=== PATIENT | male | born 1955 | race African-American/Black ===

== ENCOUNTER 2020-04-03 05:12 | Inpatient (IN) | payer OTHER ==
[~2020-04-03] VITALS: Ht 167.6 cm; Wt 72.6 kg
--- NOTE | 2020-04-03 05:30 | NUR ---
BIBRA [address] FOR C/O SOB X 7-8 HRS TO ER BED 11 PLACED ON SKILLS TRAINER VSS
--- NOTE | 2020-04-03 05:49 | NUR ---
blood collected and sent to lab
--- NOTE | 2020-04-03 06:00 | NUR ---
tech at bedside for xray
[2020-04-03 06:03] LABS: BASOPHILS # (AUTO) 0.1 /CMM (0.0-0.2); BASOPHILS % (AUTO) 1.4 % (0.0-2.0); EOSINOPHILS % (AUTO) 0.9 % (0.0-6.0); HEMATOCRIT 38 % (39-51); HEMOGLOBIN 11.9 g/dL (13.5-17.5); LYMPHOCYTES # (AUTO) 1.4 /CMM (0.8-4.8); LYMPHOCYTES % (AUTO) 29.8 % (20.0-44.0); MEAN CORPUSCULAR HGB CONC 31 g/dl (31.0-36.0); MEAN CORPUSCULAR VOLUME 82 fL (80-96); MONOCYTES # (AUTO) 0.5 /CMM (0.1-1.30); MONOCYTES % (AUTO) 11.4 % (2.0-12.0); NEUTROPHILS # (AUTO) 2.6 /CMM (1.8-8.9); NEUTROPHILS % (AUTO) 56.5 % (43.0-81.0); PLATELET COUNT (AUTO) 436 /CMM (150-450); RED BLOOD CELL COUNT(AUTO) 4.66 MIL/uL (4.5-6.0); WHITE BLOOD COUNT (AUTO) 4.6 K/uL (4.3-11.0)
[2020-04-03 06:09] LABS: CALCIUM, SERUM 8.4 mg/dL (8.5-10.1); CREATININE 1.3 mg/dL (0.6-1.3); POTASSIUM 4.3 mmol/L (3.5-5.1)
[2020-04-03 06:21] LABS: BILIRUBIN,DIRECT 0.1 mg/dL (0.0-0.2); BILIRUBIN,TOTAL 0.4 mg/dL (0.2-1.0); TOTAL PROTEIN, SERUM 7.2 g/dL (6.4-8.2)
[2020-04-03] MEDS ORDERED: PIPERACILLIN /TAZOBACTAM 3.375 G VIAL IV ONE (06:23)
[2020-04-03] MEDS ORDERED: AZITHROMYCIN 500 MG VIAL ONE (06:23)
[2020-04-03] MEDS ORDERED: FUROSEMIDE 40 MG/4 ML VIAL IV ONE (06:30)
[2020-04-03] MEDS ORDERED: PIPERACILLIN /TAZOBACTAM 3.375 G in IV D5W 50 ML IV ONE (06:30)
[2020-04-03] MEDS ORDERED: AZITHROMYCIN 500 MG in IV D5W 250 ML IV ONE (06:30)
[2020-04-03] MEDS ORDERED: MORPHINE SULFATE INJ 4 MG/ML DISP.SYRIN ONE (06:36)
[2020-04-03] MEDS ORDERED: OLANZAPINE 10 MG VIAL IM ONE ×2 (06:37→07:00)
[2020-04-03 06:44] LABS: ABG BASE EXCESS -4.9 mmol/L; ABG OXYGEN SATURATION 95.4 % (92.0-98.5); ABG PCO2 28.1 mmHg (35.0-45.0); ABG PH 7.429 (7.350-7.450); AaDO2 33.1 mmHg; COHb 0.5 % (0.5-1.5); MetHb 0.4 % (0.0-1.5); O2Hb 94.5 % (94.0-97.0); SITE, ABG Right Radial
[2020-04-03] MEDS ORDERED: ONDANSETRON HCL/PF 4 MG/2 ML VIAL ONE (06:45)
[2020-04-03] MEDS ORDERED: FUROSEMIDE 40 MG/4 ML VIAL ONE (06:47)
[2020-04-03] MEDS ORDERED: ONDANSETRON HCL/PF - ER 4 MG/2 ML VIAL IV ONE (07:00)
[2020-04-03] MEDS ORDERED: MORPHINE SULFATE INJ 2 MG/ML DISP.SYRIN IV ONE (07:00)
[2020-04-03 07:02] LABS: CREATINE KINASE, TOTAL 459 U/L (39-308); FERRITIN 14 ng/mL (8-388)
--- NOTE | 2020-04-03 07:24 | NUR ---
report given to mary jo talavera for gill
[2020-04-03 07:40] LABS: D-DIMER 1.38 mg/L(FEU (0.17-0.50)
[2020-04-03 08:40] LABS: CALCIUM, SERUM 8.7 mg/dL (8.5-10.1); CARBON DIOXIDE 19 mmol/L (21-32); CHLORIDE 104 mmol/L (98-107); CREATININE 1.2 mg/dL (0.6-1.3); GLUCOSE 71 mg/dL (74-106); POTASSIUM 4.5 mmol/L (3.5-5.1); SODIUM SERUM 136 mmol/L (136-145); UREA NITROGEN, BLOOD 21 mg/dL (7-18)
[2020-04-03 08:45] LABS: ALANINE AMINOTRANSFERASE 54 U/L (12-78); ALKALINE PHOSPHATASE 77 U/L (46-116); ASPARTATE AMINOTRANSFERASE 54 U/L (15-37); BILIRUBIN,TOTAL 0.4 mg/dL (0.2-1.0)
--- NOTE | 2020-04-03 08:53 | NUR ---
REPORT GIVEN TO DONNA CEDENO OF TELE
--- NOTE | 2020-04-03 09:45 | NUR ---
JAMES RN NOTES RECEIVED PT IN JORY CALVIN GAVE ME REPORT. PT IS ALERT AND ORIENTED X 4. COMPLAINS OF SOB AND DIFFICULTY OF BREATHING. PT IS NC 2L L FOREARM IS INTACT AND FLUSHING WELL WITH NO SIGN OF SWELLING. PT USES URINAL. SAFETY MEASUREMENTS ARE IMPLEMENTED. BED IN THE LOWEST POSITION RAILS ARE UP X2. CALL LIGHT WITHIN REACH. WILL CONTINUE TO MONITOR
[2020-04-03] MEDS ORDERED: BUMETANIDE INJ 6 MG in IV NS 0.9% 36 ML IV ONE (10:30)
[2020-04-03] MEDS ORDERED: Z GUARD REMEDY 2 OZ OINT TP PRN (10:30)
[2020-04-03] MEDS ORDERED: ONDANSETRON HCL/PF 4 MG/2 ML VIAL IVP PRN (10:30)
[2020-04-03] MEDS: ASPIRIN EC 81 MG TABLET.DR PO SCH (10:59)
[2020-04-03] MEDS: ENOXAPARIN SODIUM 40 MG/0.4 ML DISP.SYRIN SQ SCH (11:01)
--- NOTE | 2020-04-03 11:40 | NUR ---
JAMES RN NOTES LAB CALLED DEVORAH REPORTED LACTI ACID IS 3.[address] KIKE SALVADOR WAITING FOR THE RESPONSE
--- NOTE | 2020-04-03 12:00 | NUR ---
JAMES RN NOTES DR REPLIED THANKS FOR INFORMING NO ACTION NEED IT
[2020-04-03 12:45] LABS: THYROID STIMULATING HORMONE 2.284 uIU/mL (0.358-3.74)
[2020-04-03] MEDS ORDERED: FUROSEMIDE IV ONE (13:00)
[2020-04-03] MEDS ORDERED: NS 0.9% IV ONE (13:00)
[2020-04-03 15:27] VITALS: BP 136/108
[2020-04-03] MEDS: ACETAMINOPHEN 325 MG TABLET PO PRN (17:27)
--- NOTE | 2020-04-03 18:49 | NUR ---
JAMES CLOSING RN NOTES PT IS RESTING IN BED. PT IS ALERT AND ORIENTED X 4. NOT COMPLAINING OF SOB AND DIFFICULTY OF BREATHING. PT IS NC 2L L FOREARM IS INTACT AND FLUSHING WELL WITH NO SIGN OF SWELLING. PT USES URINAL. SAFETY MEASUREMENTS ARE IMPLEMENTED. BED IN THE LOWEST POSITION RAILS ARE UP X2. CALL LIGHT WITHIN REACH. WILL ENDORSE TO INSPECTOR AIR CARRIER FOR [place].
--- NOTE | 2020-04-03 19:30 | NUR ---
RN OPENING NOTE RECEIVED PT IN BED AWAKE. A/O X 4. PT CURRENTLY NOT IN ANY RESPIRATORY DISTRESS NO S/S OF SOB. PT ON NC 2L/MIN. IV TO LEFT FOREARM PATENT, INTACT AND FLUSHING WELL. DENIES PAIN OR DISCOMFORT AT THIS TIME. CURRENTLY SR ON TELE MONITOR. SAFETY MEASUREMENTS IN PLACE, SIDE RAILS UP X 2, BED LOCKED AND IN THE LOWEST POSITION, CALL LIGHT WITHIN REACH, WILL CONTINUE TO MONITOR PT.
[2020-04-03 20:00] VITALS: BP 105/78
[2020-04-04] VITALS: BP_SYST 111; BP_SYST 125; BP_DIAS 81; BP_DIAS 92
--- NOTE | 2020-04-04 00:55 | NUR ---
0055 PATIENT STARTED SCREAMING COMPLAINING OF PAIN ON HIS LEGS, DANIEL BROOKS NOTIFIED WITH ORDER MADE. ORDER NOTED AND CARRIED OUT. PROVIDED WITH WARM COMPRESS REQUESTED FOR COMFORT.
[2020-04-04] MEDS: ACETAMINOPHEN 325 MG TABLET PO PRN (00:57)
[2020-04-04] MEDS: HYDROCODONE/APAP 5/325MG TABLET PO PRN ×2 (01:21→05:05)
[2020-04-04 04:00] VITALS: BP 115/80
[2020-04-04 06:15] LABS: BASOPHILS # (AUTO) 0.1 /CMM (0.0-0.2); BASOPHILS % (AUTO) 1.2 % (0.0-2.0); EOSINOPHILS % (AUTO) 1.8 % (0.0-6.0); HEMATOCRIT 39 % (39-51); HEMOGLOBIN 12.3 g/dL (13.5-17.5); LYMPHOCYTES # (AUTO) 1.6 /CMM (0.8-4.8); LYMPHOCYTES % (AUTO) 38.4 % (20.0-44.0); MEAN CORPUSCULAR HGB CONC 31 g/dl (31.0-36.0); MEAN CORPUSCULAR VOLUME 81 fL (80-96); MONOCYTES # (AUTO) 0.5 /CMM (0.1-1.30); MONOCYTES % (AUTO) 10.8 % (2.0-12.0); NEUTROPHILS % (AUTO) 47.8 % (43.0-81.0); PLATELET COUNT (AUTO) 485 /CMM (150-450); RED BLOOD CELL COUNT(AUTO) 4.87 MIL/uL (4.5-6.0); WHITE BLOOD COUNT (AUTO) 4.3 K/uL (4.3-11.0)
[2020-04-04 06:53] LABS: ALBUMIN 2.7 g/dL (3.4-5.0); BILIRUBIN,TOTAL 0.4 mg/dL (0.2-1.0); CALCIUM, SERUM 8.6 mg/dL (8.5-10.1); CREATININE 1.3 mg/dL (0.6-1.3); MAGNESIUM 2.3 mg/dL (1.8-2.4); PHOSPHORUS 4.1 mg/dL (2.5-4.9); POTASSIUM 3.8 mmol/L (3.5-5.1); TOTAL PROTEIN, SERUM 6.5 g/dL (6.4-8.2)
--- NOTE | 2020-04-04 06:56 | NUR ---
RN CLOSING NOTE PT IN BED AWAKE. CURRENTLY NOT IN ANY RESPIRATORY DISTRESS NO S/S OF SOB. PT ON NC 2L/MIN TOLERATING WELL. IV TO LEFT FOREARM PATENT, INTACT AND FLUSHING WELL. DENIES PAIN OR DISCOMFORT AT THIS TIME. CURRENTLY SR ON TELE MONITOR. SAFETY MEASUREMENTS IN PLACE, SIDE RAILS UP X 2, BED LOCKED AND IN THE LOWEST POSITION, CALL LIGHT WITHIN REACH. AWARE PT REQUESTING MD TO EXAMINE HERNIA. ENDORSED TO AM RN FOR [place]
[2020-04-04] MEDS: PANTOPRAZOLE 40 MG TABLET.DR PO SCH ×2 (07:40→08:41)
[2020-04-04 08:00] VITALS: BP 117/77
--- NOTE | 2020-04-04 08:10 | NUR ---
JAMES OPENING RN NOTES PT IS RESTING IN BED. PT IS ALERT AND ORIENTED X 4. NOT COMPLAINING OF SOB AND DIFFICULTY OF BREATHING. PT IS NC 2L L FOREARM IS INTACT AND FLUSHING WELL WITH NO SIGN OF SWELLING. PT USES URINAL. SAFETY MEASUREMENTS ARE IMPLEMENTED. BED IN THE LOWEST POSITION RAILS ARE UP X2. CALL LIGHT WITHIN REACH. WILL CONTINUE TO MONITOR
[2020-04-04] MEDS ORDERED: [UNRECOGNIZED DRUG - REMARK] PO (08:29)
[2020-04-04] MEDS ORDERED: [UNRECOGNIZED DRUG - REMARK] PO (08:29)
[2020-04-04] MEDS ORDERED: GABA600T12 PO (08:29)
[2020-04-04] MEDS ORDERED: HYDR-4354 PO (08:29)
[2020-04-04] MEDS ORDERED: HYDR-4384 PO (08:29)
[2020-04-04] MEDS: ASPIRIN EC 81 MG TABLET.DR PO SCH (08:41)
[2020-04-04] MEDS: ENOXAPARIN SODIUM 40 MG/0.4 ML DISP.SYRIN SQ SCH (08:41)
--- NOTE | 2020-04-04 09:29 | NUR ---
Received a call from RN about pt being constantly hungry. Pt currently on CCHO 60gm diet, noted A1C 6.2 -controlled and pt currently not on accu-checks or insulin. Noted pt homeless and BMI 25.8. Per pt, request will allow to have 1/[address] will conduct an initial assessment, per policy.
[2020-04-04] MEDS ORDERED: ENOXAPARIN SODIUM 40 MG/0.4 ML DISP.SYRIN SQ SCH (10:00)
[2020-04-04 12:00] VITALS: BP 124/96
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
[2020-04-04] MEDS ORDERED: MINERAL OIL/PETROLATUM,WHITE 120 GM JAR TP PRN (12:14)
[2020-04-04] MEDS ORDERED: CALAMINE 118 ML BOTTLE TP PRN (12:15)
[2020-04-04] MEDS: GABAPENTIN 400 MG CAPSULE PO SCH ×2 (12:35→17:32)
[2020-04-04] MEDS ORDERED: MAGNESIUM CITRATE 296 ML BOTTLE PO ONE (13:00)
[2020-04-04] MEDS: LACTULOSE 10 G/15 ML UDC (PYXIS) PO SCH ×2 (13:12→17:32)
[2020-04-04 16:00] VITALS: BP 101/34
--- NOTE | 2020-04-04 18:15 | NUR ---
JAMES CLOSING RN NOTES PT IS RESTING IN BED. PT IS ALERT AND ORIENTED X 4. NOT COMPLAINING OF SOB AND DIFFICULTY OF BREATHING. PT COMPLAINED OF ABD PAIN HAD X RAY OF ABD. PT COMPLAINED OF PAIN DR JAKI PRESCRIBED GABAPENTIN. PT IS NC 2L L FOREARM IS INTACT AND FLUSHING WELL WITH NO SIGN OF SWELLING. PT USES URINAL. SAFETY MEASUREMENTS ARE IMPLEMENTED. BED IN THE LOWEST POSITION RAILS ARE UP X2. CALL LIGHT WITHIN REACH. WILL ENDORSE TO NIGHTSHIFT NURSE FOR [place]
--- NOTE | 2020-04-04 19:50 | NUR ---
RN OPENING NOTE RECEIVED PT IN THE BED. A/A/O X4. PT HAS UNLABORED BREATHING, ON 2 L O2 VIA NC SATING 99%. HAS IV ON LFA PT ON RN PEDIATRIC SHOWING ST,20 G PATENT AND FLUSHES WELL, S/L. SAFETY MEASURES IN PLACE BED AT LOWEST POSITION, AND LOCKED, SIDE RAILS UPX2, CALL LIGHT IN REACH.
[2020-04-04 20:00] VITALS: BP 142/90
[2020-04-04] MEDS: MUPIROCIN OINT 2% 22 GM TUBE NS SCH (21:27)
[2020-04-05] VITALS: BP 111/81
[2020-04-05] MEDS: LACTULOSE 10 G/15 ML UDC (PYXIS) PO SCH ×3 (00:12→11:36)
[2020-04-05] MEDS: HYDROCODONE/APAP 5/325MG TABLET PO PRN ×2 (01:12→09:03)
[2020-04-05 04:00] VITALS: BP 126/99
[2020-04-05 06:42] LABS: BASOPHILS # (AUTO) 0.1 /CMM (0.0-0.2); BASOPHILS % (AUTO) 1.2 % (0.0-2.0); EOSINOPHILS % (AUTO) 1.9 % (0.0-6.0); HEMATOCRIT 37 % (39-51); HEMOGLOBIN 11.8 g/dL (13.5-17.5); LYMPHOCYTES # (AUTO) 1.3 /CMM (0.8-4.8); LYMPHOCYTES % (AUTO) 29.5 % (20.0-44.0); MEAN CORPUSCULAR HGB CONC 32 g/dl (31.0-36.0); MEAN CORPUSCULAR VOLUME 81 fL (80-96); MONOCYTES # (AUTO) 0.5 /CMM (0.1-1.30); MONOCYTES % (AUTO) 12.3 % (2.0-12.0); NEUTROPHILS # (AUTO) 2.4 /CMM (1.8-8.9); NEUTROPHILS % (AUTO) 55.1 % (43.0-81.0); PLATELET COUNT (AUTO) 499 /CMM (150-450); RED BLOOD CELL COUNT(AUTO) 4.65 MIL/uL (4.5-6.0); WHITE BLOOD COUNT (AUTO) 4.3 K/uL (4.3-11.0)
--- NOTE | 2020-04-05 07:18 | NUR ---
RN CLOSING NOTE PT REMAINED STABLE DURING MY SHIFT, WILL ENDORSE TO INCOMING SHIFT FOR [place].
--- NOTE | 2020-04-05 08:48 | NUR ---
RN OPENING NOTES RECEIVED REPORT FROM WILIAN MOSCOSO. RECEIVED PT IN BED. AWAKE LAERT AND ORIENTED X4. NO CARDIAC OR RESPIRATORY DISTRESS NOTED. NO SOB NOTED. SATURATING WELL ON ROOM AIR. ON CARDIAC TELE MONITOR SHOWING NSR. IV ACCESS NOTED ON LFA G20. INTACT AND PATENT AND FLUSHING WELL. NO S/S OF INFECTION OR INFILTRATION NOTED. SAFETY PRECAUTIONS IN PLACE. BED LOCKED AND IN LOW POSITION. SIDE RAILS UP X2. BED ALARM ON. CALL LIGHT WITHIN REACH.
[2020-04-05] MEDS: MUPIROCIN OINT 2% 22 GM TUBE NS SCH (09:00)
[2020-04-05] MEDS: ASPIRIN EC 81 MG TABLET.DR PO SCH (09:07)
[2020-04-05] MEDS: GABAPENTIN 400 MG CAPSULE PO SCH (09:07)
[2020-04-05] MEDS: ENOXAPARIN SODIUM 40 MG/0.4 ML DISP.SYRIN SQ SCH (09:08)
[2020-04-05 09:16] VITALS: BP 123/89
[2020-04-05 10:56] LABS: CALCIUM, SERUM 8.3 mg/dL (8.5-10.1); MAGNESIUM 2.4 mg/dL (1.8-2.4); PHOSPHORUS 3.5 mg/dL (2.5-4.9); POTASSIUM 4.1 mmol/L (3.5-5.1)
--- NOTE | 2020-04-05 11:07 | NUR ---
PATIENT WENT OUT OF ROOM SCREAMING AND DEMANDING FOR HIS DOCTOR,WANTED TO LEAVE HOSPITAL,NANETTE SALVADOR NOTIFIED AND OK PATIENT TO LEAVE AMA,RAPID TEST NEGATIVE FOR COVID,TAP CARD PROVIDED PATIENT INSISTING GINOSILVERWARE BUFFER ONEYDA FACE TIME PATIENT.
--- NOTE | 2020-04-05 11:15 | NUR ---
REFUSED BODY CHECK PT REFUSED BODY CHECK FROM RN FOR D/C ASSESSMENT. HE SAID, "NO. IM TRYING TO GO!." PT YELLING AND SCREAMING AT PRIMARY RN AND CENTER RECEPTIONIST. ONLY ALLOWED RN TO REMOVE IV ACCESS ON L FA. NO S/S OF BLEEDING NOTED.
--- NOTE | 2020-04-05 11:30 | NUR ---
DISCHARGE PT DISCHARGED. PT PROVIDED ADRRESS THE HE WILL BE GOING TO. PT WAS ALSO GIVEN UBER PER HIS REQUEST. OFFERED TAP CARD BUT HE REFUSED. PT WAS PICKED UP BY UBER. PT SPOKE TO ONEYDA BEAN PRIOR TO D/C. ALL DISCHARGE INSTRUCTIONS PROVIDED TO PT. INSTRUCTED PT TO MAKE AN APPT WITH PCP IN 1 WEEK AND TO GO TO THE NEAREST ER IF HE HAS ANY CHEST PAIN, RESP DISTRESS ETC. PT AGREED. PT SIGNED ALL D/C PAPERWORKS. LEFT IN STABLE CONDITION.
== END 2020-04-05 12:26 | disposition home or self-care (01) | DRG 194 ==
LOC: ER 05:12 → TELE1 08:03 → MEDSG1 04-05 10:14
PROVIDERS: ADMIT Nurse Practitioner Acute Care; ATTEND Nurse Practitioner Acute Care
DX: I11.0 Hypertensive heart disease with heart failure (principal); I50.33 Acute on chronic diastolic (congestive) heart failure; E11.9 Type 2 diabetes mellitus without complications; E88.09 Other disorders of plasma-protein metabolism, not elsewhere classified; F17.210 Nicotine dependence, cigarettes, uncomplicated; F10.10 Alcohol abuse, uncomplicated; N17.0 Acute kidney failure with tubular necrosis; Z59.0 Homelessness; E87.2 Acidosis; Z91.19 Patient's noncompliance with other medical treatment and regimen; M54.30 Sciatica, unspecified side; R74.0 Nonspecific elevation of levels of transaminase and lactic acid dehydrogenase [LDH]; Z68.25 Body mass index [BMI] 25.0-25.9, adult; R07.9 Chest pain, unspecified; K40.20 Bilateral inguinal hernia, without obstruction or gangrene, not specified as recurrent; K59.00 Constipation, unspecified
CPT/HCPCS: 36415; 36600; 71045-TC; 74018; 80048-TC; 80053-TC; 80061-TC; 80076-TC; 80305; 82550-TC; 82553; 82728-TC; 82803-TC; 83605-TC; 83615-TC; 83735-TC; 83880; 84100-TC; 84443-TC; 84484-TC; 85025-TC; 85378-TC; 85385-TC; 85730-TC; 86140-TC; 87040-TC; 87081-TC; G0378; J0456; J1650; J1940; J2270; J2405; J2543; J3490; J7030; J7060; U0003-CS

== ENCOUNTER 2020-10-08 01:48 | Inpatient (IN) | payer OTHER ==
[~2020-10-08] VITALS: Ht 185.4 cm; Wt 74.4 kg
[~2020-10-08 01:48] MED LIST: GABA600T12 PO; HYDR-4354 PO; HYDR-4384 PO; [UNRECOGNIZED DRUG - REMARK] PO; [UNRECOGNIZED DRUG - REMARK] PO
--- NOTE | 2020-10-08 01:56 | NUR ---
bibra 60 from c/o groin pain x 2 days. 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 not in acute distress, pending er provider german
--- NOTE | 2020-10-08 02:33 | NUR ---
RADIOLOGY AT BEDSIDE FOR CXR
[2020-10-08 02:48] LABS: CALCIUM, SERUM 9.1 mg/dL (8.5-10.1); CARBON DIOXIDE 28 mmol/L (21-32); CHLORIDE 98 mmol/L (98-107); CREATININE 1.3 mg/dL (0.6-1.3); GLUCOSE 108 mg/dL (74-106); POTASSIUM 4.6 mmol/L (3.5-5.1); SODIUM SERUM 133 mmol/L (136-145); UREA NITROGEN, BLOOD 18 mg/dL (7-18)
[2020-10-08 02:54] LABS: BASOPHILS # (AUTO) 0.1 /CMM (0.0-0.2); BASOPHILS % (AUTO) 0.3 % (0.0-2.0); HEMATOCRIT 46 % (39-51); HEMOGLOBIN 15.1 g/dL (13.5-17.5); LYMPHOCYTES # (AUTO) 1.1 /CMM (0.8-4.8); LYMPHOCYTES % (AUTO) 4.8 % (20.0-44.0); MEAN CORPUSCULAR HGB CONC 33 g/dl (31.0-36.0); MEAN CORPUSCULAR VOLUME 92 fL (80-96); MONOCYTES # (AUTO) 1.2 /CMM (0.1-1.30); MONOCYTES % (AUTO) 5.3 % (2.0-12.0); NEUTROPHILS # (AUTO) 20.5 /CMM (1.8-8.9); NEUTROPHILS % (AUTO) 89.6 % (43.0-81.0); PLATELET COUNT (AUTO) 301 /CMM (150-450); RED BLOOD CELL COUNT(AUTO) 4.96 MIL/uL (4.5-6.0); WHITE BLOOD COUNT (AUTO) 22.8 K/uL (4.3-11.0)
[2020-10-08] MEDS ORDERED: VANCOMYCIN 1 GM in IV D5W 250 ML IV ONE (06:00)
[2020-10-08] MEDS ORDERED: PIPERACILLIN /TAZOBACTAM 3.375 G in IV D5W 50 ML IV ONE (06:00)
--- NOTE | 2020-10-08 06:19 | NUR ---
COVID SWAB SENT
[2020-10-08] MEDS ORDERED: PIPERACILLIN /TAZOBACTAM 3.375 G VIAL IV ONE (06:20)
[2020-10-08] MEDS ORDERED: VANCOMYCIN 1 GM VIAL ONE (06:20)
--- NOTE | 2020-10-08 06:35 | NUR ---
URINE COLLECTED, SEN TO LAB
[2020-10-08] MEDS ORDERED: MAG HYDROX/AL HYDROX/SIMETH 30 ML UDC PO PRN (07:00)
[2020-10-08] MEDS ORDERED: ONDANSETRON HCL/PF 4 MG/2 ML VIAL IVP PRN (07:00)
[2020-10-08] MEDS ORDERED: ZOLPIDEM TARTRATE 5 MG TABLET PO PRN (07:00)
[2020-10-08] MEDS ORDERED: Z GUARD REMEDY 2 OZ OINT TP PRN (07:00)
[2020-10-08] MEDS ORDERED: MAGNESIUM HYDROXIDE 30 ML UDC PO PRN (07:00)
[2020-10-08 07:18] LABS: COLOR,URINE DARK YELLOW (YELLOW); PROTEIN,URINE 100 mg/dl (NEGATIVE)
[2020-10-08 07:19] LABS: BILIRUBIN,URINE NEGATIVE (NEGATIVE); UGLUCOSE NEGATIVE (NEGATIVE); UROBILINOGEN,URINE 0.2 EU/dL (0.2)
[2020-10-08 07:20] LABS: LEUKOCYTE ESTERASE ,URINE NEGATIVE (NEGATIVE); NITRITE, URINE NEGATIVE (NEGATIVE)
[2020-10-08] MEDS: PANTOPRAZOLE 40 MG TABLET.DR PO SCH ×2 (07:30→08:30)
[2020-10-08] MEDS: ENOXAPARIN SODIUM 40 MG/0.4 ML DISP.SYRIN SQ SCH ×2 (07:30→08:30)
[2020-10-08] MEDS ORDERED: ENOXAPARIN SODIUM 40 MG/0.4 ML DISP.SYRIN SQ ONE (07:58)
[2020-10-08] MEDS ORDERED: PANTOPRAZOLE 40 MG TABLET.DR PO ONE (07:58)
--- NOTE | 2020-10-08 08:00 | NUR ---
PATIENTS V/S STABLE, MEDS ADMINISTERED ORDERED, PT IS SLEEPING COMFORTABLY. WILL MONITOR ACCORDINGLY.
[2020-10-08 08:22] LABS: BACTERIA,URINE Rare /HPF (None Seen); RBC,URINE 0-3 /HPF (0-2); SQUAMOUS EPITHELIAL CELL,UR Rare /HPF (None Seen); WBC,URINE 0-3 /HPF (0-3)
[2020-10-08] MEDS: PIPERACILLIN /TAZOBACTAM 3.375 G in IV D5W 100 ML IV SCH ×2 (09:20→18:15)
--- NOTE | 2020-10-08 12:06 | NUR ---
PT PROVIDED WITH LUNCH.
--- NOTE | 2020-10-08 12:14 | NUR ---
ROOM 107
--- NOTE | 2020-10-08 12:28 | NUR ---
PT CONSUMED 90% OF FOOD, POSITIONED COMFORTABLY.
--- NOTE | 2020-10-08 13:15 | NUR ---
REPORT GIVEN TO WILIAN FARIAS FOR [place]
--- NOTE | 2020-10-08 13:27 | NUR ---
PT TRANSPORTED TO UNIT ON GURNEY WITH EMT ADN RN AT BEDSIDE W/ ACLS PROTOCOL. NAD NOTED DURING TRANSPORT.
--- NOTE | 2020-10-08 14:00 | NUR ---
RECEIVED PATIENT FROM ER. NO ACUTE DISTRESS NOTED. PATIENT A&OX3. PATIENT ON ROOM AIR, SATURATING WELL, >96%. PATIENT ON BAGGING MACHINE OPERATOR, NSR/ST NOTED. PATIENT LH #20 INTACT, PATENT. PATIENT SAFETY MEASURES MAINTAINED. CALL LIGHT WITHIN REACH. WILL CONTINUE TO MONITOR. PATIENT ADMITTING VS- T: 99.1, BP 133/88, RR: 18, HR 94, O2 SAT: 97%. NO PAIN REPORTED AT THIS TIME
[2020-10-08 16:00] VITALS: BP 101/72
[2020-10-08] MEDS: ACETAMINOPHEN 325 MG TABLET PO PRN (18:15)
--- NOTE | 2020-10-08 18:33 | NUR ---
PATIENT RESTING IN BED. NO ACUTE DISTRESS NOTED. PATIENT A&OX3. PATIENT ON ROOM AIR, SATURATING WELL, >96%. PATIENT ON DIRECTOR OF SCOUT WORK, NSR/ST NOTED. PATIENT LH #20 INTACT, PATENT. PATIENT SAFETY MEASURES MAINTAINED. CALL LIGHT WITHIN REACH. WILL ENDORSE PLAN OF CARE TO ONCOMING SHIFT
[2020-10-08 20:00] VITALS: BP 102/73
--- NOTE | 2020-10-08 20:46 | NUR ---
RN NOTE PATIENT A/OX4. ON ROOM AIR O2 SAT 100%. NO SOB OR RESPIRATORY DISTRESS. DENIES ANY PAIN OR DISCOMFORT. WITH LEFT HAND #20 PATENT AND INTACT. ALL NEEDS ANTICIPATED. BED LOCKED AND IN LOWEST POSITION. CALL LIGHT WITHIN REACH. SAFETY MEASURES IMPLEMENTED. WILL CONTINUE TO MONITOR.
[2020-10-09] VITALS (7 sets, daily range): BP systolic 108–131; BP diastolic 52–91
[2020-10-09] MEDS: ACETAMINOPHEN 325 MG TABLET PO PRN (01:05)
[2020-10-09] MEDS: PIPERACILLIN /TAZOBACTAM 3.375 G in IV D5W 100 ML IV SCH ×2 (01:31→10:28)
[2020-10-09] MEDS: ENOXAPARIN SODIUM 40 MG/0.4 ML DISP.SYRIN SQ SCH (06:30)
--- NOTE | 2020-10-09 07:11 | NUR ---
RN NOTE PATIENT A/OX4. ON ROOM AIR O2 SAT 100%. NO SOB. DENIES ANY PAIN OR DISCOMFORT. WITH LEFT HAND #20 PATENT AND INTACT. ALL NEEDS ANTICIPATED. DUE MEDS GIVEN ORDERED. KEPT CLEAN AND DRY. BED LOCKED AND IN LOWEST POSITION. CALL LIGHT WITHIN REACH. SAFETY MEASURES IMPLEMENTED. WILL ENDORSE TO ONCOMING SHIFT.
[2020-10-09 07:29] LABS: BASOPHILS % (AUTO) 0.2 % (0.0-2.0); EOSINOPHILS % (AUTO) 0.1 % (0.0-6.0); HEMATOCRIT 40 % (39-51); HEMOGLOBIN 13.2 g/dL (13.5-17.5); LYMPHOCYTES % (AUTO) 6.7 % (20.0-44.0); MEAN CORPUSCULAR HGB CONC 33 g/dl (31.0-36.0); MEAN CORPUSCULAR VOLUME 91 fL (80-96); MONOCYTES # (AUTO) 1.3 /CMM (0.1-1.30); MONOCYTES % (AUTO) 8.5 % (2.0-12.0); NEUTROPHILS # (AUTO) 12.6 /CMM (1.8-8.9); NEUTROPHILS % (AUTO) 84.5 % (43.0-81.0); PLATELET COUNT (AUTO) 260 /CMM (150-450); RED BLOOD CELL COUNT(AUTO) 4.34 MIL/uL (4.5-6.0)
--- NOTE | 2020-10-09 07:30 | NUR ---
RN OPENING NOTE PATIENT IN BE,AWAKE, A/OX4, ON ROOM AIR, SPO2 IS 100%, COMFORTABLE IN BED, SR ON TELE-MONITOR, AMBULATORY, SKIN IS INTACT, CARDIAC DIET NOTED, IV LINE INTACT ON LEFT HAND, FLUSHED AND PATENT, SAFETY PRECAUTIONS IN PLACE, BED IS LOCKED , IN LOWEST POSITION, CALL LIGHT IN REACH, WILL CONT TO MONITOR
[2020-10-09 07:40] LABS: CALCIUM, SERUM 8.5 mg/dL (8.5-10.1); MAGNESIUM 2.3 mg/dL (1.8-2.4); PHOSPHORUS 1.8 mg/dL (2.5-4.9); POTASSIUM 3.8 mmol/L (3.5-5.1)
[2020-10-09 07:49] LABS: THYROID STIMULATING HORMONE 1.52 uIU/mL (0.358-3.74)
[2020-10-09] MEDS: PANTOPRAZOLE 40 MG TABLET.DR PO SCH (08:49)
[2020-10-09] MEDS ORDERED: HYDROCODONE/APAP 5/325MG TABLET PO PRN (09:30)
[2020-10-09] MEDS: ASPIRIN 81 MG TAB.CHEW PO SCH (10:27)
[2020-10-09] MEDS: HYDROCODONE/APAP 5/325MG TABLET PO PRN ×2 (10:30→19:12)
[2020-10-09] MEDS: VANCOMYCIN 1 GM in IV D5W 250 ML IV SCH ×3 (11:38→20:00)
[2020-10-09] MEDS ORDERED: Sodium Phosphate 15 MMOL in IV NS 0.9% 245 ML IV SCH (13:30)
--- NOTE | 2020-10-09 15:00 | NUR ---
CLEANED, REPOSITIONED,MEDS ARE GIVEN, COVID NEGATIVE, WILL TRANSFER TO OTHER UNIT
[2020-10-09] MEDS: ZOSYN IVPB 3.375 G in IV D5W 50ml IV SCH ×2 (15:40→22:43)
--- NOTE | 2020-10-09 15:47 | NUR ---
"SS Consult: SS Consult requested for homelessness. The pt. is a 64-year old Black male seeking medical treatment for pneumonia & leg pain. The pt. is awake, alert & oriented x 4. The pt. makes appropriate eye contact, remained calm & cooperative throughout assessment. The pt. stated he is experiencing homelessness & residing in an encampment outside the [facility] [place] [phone]]. The patient is able to plan for self-care. SW offered the pt. homeless resources & he accepted them. The pt. stated he receives SSI & is attempting to enroll in VA Benefits. The pt. denies SI/HI & denies hallucinations. Per pt. he has been diagnosed with Anxiety & Depression in the past & is not currently taking medications for it. Plan: Pt. stated he would like to return to his encampment outside of [facility] [place] [phone]] when ready for discharge. Pt. signed the homeless waiver & it was filed in the pt.s chart. KETTY provided pt. with the following resources: Substance Abuse resources provided included: [facility] Substance Abuse Self-Helpline ([facility]) ; CRI -HELP [address] [facility]. [place] [phone] ; [facility] [address] [facility] [address] ; [facility] Rehabilitation Program [address] [facility] [address] ; [facility] [address] [facility] [phone] ; [facility] 4940 [facility] [address] ; [facility] [address] [facility] [address] ; [facility] Substance Abuse Helpline(SAS)-[facility] ; [facility] ; [facility] [place]; Cri[facility]Help [place]; [facility] [place]; [facility]; [facility] [place]; [facility] [place]; [facility], [facility]. [facility]; Alcoholics Anonymous -SFV; Nv-Jvwd-Dyzlftu ; Marijuana Anonymous -SFV; Narcotics Anonymous www.na.org. Year-round shelters: [facility] [place] [address] [place], [place] [phone] ; [facility] [place] [address] [place] [address]; [facility] [place] [facility] [address] Winter Shelters: [facility] Provider: [facility] [place] Address: [address] [facility], [address] # of Beds: 47 Population Served: [facility] 6 | [facility] Vanessa Collins [place] Provider: [facility] at Last Address: [address] [place] [address], [address] # of Beds: 66 Population Served: [facility] [employer] [place] Provider: First [facility] Serve Address: [address] [facility], [address] # of Beds: 56 Population Served: [facility] [place]eyad [place] Provider: [facility] Address: [address] [facility], [address] # of Beds: 49 Population Served: [facility] 8 | [facility] Provider: First to Serve Address: [address] [facility], [address] # of Beds: 37 Population Served: [facility] Hygiene: Merged with [facility] Hospital[facility]: [address] [address] [place]. [place] ; [facility] [address] [facility] ; [facility] [address] [place]red[place] Yenifer . Food Resources: [place] [facility] at [facility]- [address] [place]; Meet Each Need with Dignity ([facility]) [address] [facility] [place]; [facility] 4[address] [facility]; [facility] 8547 [facility]. Mental Health resources provided: [facility] [address] [place], [place] [phone] ; [facility] [address] [facility] [address], [place], [place] [phone] ; [facility] [address] [address], [place] [phone] ; [facility] [address] [place], [place] [phone] Healthcare Clinics: [facility] [address] [facility], [address] [place]. [place] ; [facility] [address] [facility] [address] [place] [address]; [facility] [address] [facility] [address] [phone]"
--- NOTE | 2020-10-09 17:00 | NUR ---
MS RN NOTE RECEIVED PATIENT FROM JAMES. PATIENT IS IN NO ACUTE DISTRESS. NO SOB NOTED. PATIENT IS ON ROOM AIR, TOLERATING WELL. VITAL SIGNS ARE WITHIN NORMAL LIMITS. SAFETY PRECAUTIONS ARE IN PLACE. BED IN THE LOWEST POSITION WITH SIDE RAILS UP, CALL LIGHT WITHIN REACH. WILL CONTINUE TO MONITOR THROUGH OUT THE SHIFT.
--- NOTE | 2020-10-09 20:00 | NUR ---
RN NOTES RECEIVED PT. AWAKE ON BED, A/OX2-3, DENIES PAIN, NO SOB, CALL LIGHT WITHIN REACH, SIDRAILSUPX2, CONTINUE TO MONITOR
--- NOTE | 2020-10-09 20:30 | NUR ---
MS RN CLOSING NOTE PATIENT IS IN BED RESTING. PATIENT IS IN NO ACUTE DISTRESS. PATIENT IS ON ROOM AIR. NO SOB NOTED. SAFETY PRECAUTIONS ARE IN PLACE. BED IN THE LOWEST POSITION, SIDE RAILS ARE UP. CALL LIGHT WITHIN REACH. ENDORSE PATIENT TO THE CREATIVE SERVICES COORDINATOR NURSE FOR [place].
--- NOTE | 2020-10-09 22:00 | NUR ---
RN NOTES PT. PULLED OUT HIS IV, NEW IV LINE INSERTED ON THE RIGHT FOREARM # 20
[2020-10-10] VITALS (7 sets, daily range): BP systolic 123–138; BP diastolic 76–93
[2020-10-10] MEDS: VANCOMYCIN 1 GM in IV D5W 250 ML IV SCH ×3 (02:55→18:00)
[2020-10-10] MEDS: ZOSYN IVPB 3.375 G in IV D5W 50ml IV SCH ×5 (04:00→21:22)
--- NOTE | 2020-10-10 04:00 | NUR ---
RN NOTES PT. REFUSED HIS IV ANTIBIOTIC, EXPLAINED THE IMPORTANCE OF THIS MEDICATION. PT STILL REFUSING
--- NOTE | 2020-10-10 05:20 | NUR ---
RN NOTES COMPLAINED OF ABDOMINAL PAIN- NORCO 5/325MG PO GIVEN ORDERED, V.S/ STABLE
[2020-10-10] MEDS: HYDROCODONE/APAP 5/325MG TABLET PO PRN ×3 (05:22→22:14)
[2020-10-10 06:31] LABS: BASOPHILS % (AUTO) 0.3 % (0.0-2.0); EOSINOPHILS % (AUTO) 0.4 % (0.0-6.0); HEMATOCRIT 38 % (39-51); HEMOGLOBIN 12.7 g/dL (13.5-17.5); LYMPHOCYTES # (AUTO) 0.9 /CMM (0.8-4.8); LYMPHOCYTES % (AUTO) 10.2 % (20.0-44.0); MEAN CORPUSCULAR HGB CONC 33 g/dl (31.0-36.0); MEAN CORPUSCULAR VOLUME 92 fL (80-96); MONOCYTES # (AUTO) 0.8 /CMM (0.1-1.30); MONOCYTES % (AUTO) 9.2 % (2.0-12.0); NEUTROPHILS # (AUTO) 7.2 /CMM (1.8-8.9); NEUTROPHILS % (AUTO) 79.9 % (43.0-81.0); PLATELET COUNT (AUTO) 285 /CMM (150-450); RED BLOOD CELL COUNT(AUTO) 4.15 MIL/uL (4.5-6.0)
--- NOTE | 2020-10-10 07:00 | NUR ---
RN NOTES AWAKE,DENIES PAIN, NO SOB, MORNING CARE RENDERED, CALL LIGHT WITHIN REACH, SIDERAILSUPX2, PT. NEEDS ATTENDED
[2020-10-10] MEDS: ENOXAPARIN SODIUM 40 MG/0.4 ML DISP.SYRIN SQ SCH (07:13)
[2020-10-10 07:16] LABS: CALCIUM, SERUM 8.2 mg/dL (8.5-10.1); CREATININE 0.8 mg/dL (0.6-1.3); PHOSPHORUS 2.6 mg/dL (2.5-4.9); POTASSIUM 3.6 mmol/L (3.5-5.1)
--- NOTE | 2020-10-10 07:25 | NUR ---
CHIEF CLINICAL DIETITIAN OPENING NOTES RECEIVED PT IN BED. A/O X 2-3. THERE ARE SOME CONFUSION IN BETWEEN OF CONVERSATION. NO SOB NOTED. NO S/S OF RESPIRATORY DISTRESS. IV ACCESS ON R FA #20 G. SAFETY MEASURES MAINTAINED. BED IN LOWEST POSITION, BRAKES LOCKED. SIDE RAILS UP X2. CALL LIGHT WITHIN REACH. WILL CONTINUE PLAN OF CARE.
--- NOTE | 2020-10-10 08:12 | NUR ---
DRILLER BRAKE LINING NOTES (+) MRSA. ORDERED BACTROBAN OINTMENT 2%.
[2020-10-10] MEDS: PANTOPRAZOLE 40 MG TABLET.DR PO SCH (08:59)
[2020-10-10] MEDS: ASPIRIN 81 MG TAB.CHEW PO SCH (08:59)
[2020-10-10] MEDS ORDERED: NITROGLYCERIN 0.4 MG/TAB BOTTLE ONE (09:13)
[2020-10-10] MEDS ORDERED: CT SWABBABLE VALVE TRANS SET 1 EA INFUS.SET MC ONE (09:13)
[2020-10-10] MEDS ORDERED: IOHEXOL-350 100 ML VIAL IV ONE ×2 (09:13→10:04)
[2020-10-10] MEDS ORDERED: METOPROLOL TARTRATE INJ 5 MG/5 ML AMPUL ONE (09:13)
[2020-10-10] MEDS ORDERED: IV NS 0.9% 250 ML IV ONE (09:13)
[2020-10-10] MEDS: METOPROLOL TARTRATE INJ 5 MG/5 ML AMPUL IVP PRN ×3 (09:55→10:05)
[2020-10-10] MEDS ORDERED: IV NS 0.9% 500 ML IV ONE (09:57)
[2020-10-10] MEDS: NITROGLYCERIN 0.4 MG/TAB BOTTLE SL ONE ×2 (10:00→10:09)
--- NOTE | 2020-10-10 10:16 | NUR ---
POST CTA PROCEDURE PT IS AAOX4, NOT IN RESPIRATORY DISTRESS, V/S STABLE, CTA WELL TOLERATED BY THE PT. IV CATH INTACT INFUSING WELL. REPORT GIVEN TO WILIAN BARBOZA FOR [place].
--- NOTE | 2020-10-10 10:30 | NUR ---
PACKING LINE WORKER NOTES PATIENT WAS BACK TO HIS ROOM AFTER CT ANGIO
[2020-10-10] MEDS: MUPIROCIN OINT 2% 22 GM TUBE NS SCH ×2 (10:43→21:14)
--- NOTE | 2020-10-10 11:06 | NUR ---
Social Service Follow up: KETTY did a follow up by [facility] for a 64 year old homeless [place] male. KETTY met with pt at [facility] room 313 bed 1 and to give the list of resources ([facility]- [phone], [facility] [phone]. EKTTY also gave a pair of shoes requested by the pt. Plan: SW the proper resources for the pt. General Labor will be available upon request.
--- NOTE | 2020-10-10 18:54 | NUR ---
EDGE BEADER CLOSING NOTES PATIENT IN BED. A/O X 2-3. NO SOB NOTED. NO S/S OF RESPIRATORY DISTRESS. IV ACCESS ON R FA #20 G. ABLE TO MAKE NEEDS KNOWN. ROUTINE MEDS WERE GIVEN ORDERED. SAFETY MEASURES MAINTAINED. BED IN LOWEST POSITION, BRAKES LOCKED. SIDE RAILS UP X2. CALL LIGHT WITHIN REACH. WILL ENDORSE TO TIMBER RIDER FOR [place].
--- NOTE | 2020-10-10 19:00 | NUR ---
RECEIVED ALERT AND ORIENTATEDX4 IN [facility] DENIES PAIN AT THIS TIME
[2020-10-11] VITALS: BP 131/90
[2020-10-11] MEDS: VANCOMYCIN 1 GM in IV D5W 250 ML IV SCH ×3 (03:11→18:01)
[2020-10-11] MEDS: ZOSYN IVPB 3.375 G in IV D5W 50ml IV SCH ×4 (03:56→22:01)
[2020-10-11 04:00] VITALS: BP_SYST 122; BP_SYST 132; BP_DIAS 70; BP_DIAS 83
--- NOTE | 2020-10-11 05:24 | NUR ---
ENDING NOTES: REMAINS ALERT AND ORIENTATEDX3. SPK OF BEING DISCHARGED TODAY. STATES HE LIVES IN A TENT! LEFT LEG REMAINS RED AND SWOLLEN, STRON ppp AND THE LEGS IS WARM. HE IS ON RA SATS 97%. PLEASENT GENTLEMAN. GOOD APPETITE
[2020-10-11 06:15] LABS: BASOPHILS % (AUTO) 0.5 % (0.0-2.0); EOSINOPHILS % (AUTO) 1.2 % (0.0-6.0); HEMATOCRIT 40 % (39-51); HEMOGLOBIN 13.3 g/dL (13.5-17.5); LYMPHOCYTES # (AUTO) 0.9 /CMM (0.8-4.8); LYMPHOCYTES % (AUTO) 14.3 % (20.0-44.0); MEAN CORPUSCULAR HGB CONC 34 g/dl (31.0-36.0); MEAN CORPUSCULAR VOLUME 92 fL (80-96); MONOCYTES # (AUTO) 0.8 /CMM (0.1-1.30); MONOCYTES % (AUTO) 12.1 % (2.0-12.0); NEUTROPHILS # (AUTO) 4.6 /CMM (1.8-8.9); NEUTROPHILS % (AUTO) 71.9 % (43.0-81.0); PLATELET COUNT (AUTO) 344 /CMM (150-450); RED BLOOD CELL COUNT(AUTO) 4.34 MIL/uL (4.5-6.0); WHITE BLOOD COUNT (AUTO) 6.3 K/uL (4.3-11.0)
[2020-10-11] MEDS: ENOXAPARIN SODIUM 40 MG/0.4 ML DISP.SYRIN SQ SCH (06:39)
[2020-10-11] MEDS: PANTOPRAZOLE 40 MG TABLET.DR PO SCH (06:40)
[2020-10-11 07:10] LABS: CALCIUM, SERUM 8.6 mg/dL (8.5-10.1); CREATININE 0.9 mg/dL (0.6-1.3); POTASSIUM 3.9 mmol/L (3.5-5.1)
--- NOTE | 2020-10-11 07:20 | NUR ---
MS RN OPENING NOTES RECEIVED PT IN BED. A/O X 3. AMBULATORY WITH ASSIST. NO SOB NOTED. NO S/S OF RESPIRATORY DISTRESS. IV ACCESS ON R WRIST #20 G. SAFETY MEASURES MAINTAINED. BED IN LOWEST POSITION, BRAKES LOCKED. SIDE RAILS UP X2. CALL LIGHT WITHIN REACH. WILL CONTINUE PLAN OF CARE.
[2020-10-11 08:00] VITALS: BP 144/95
[2020-10-11] MEDS: MUPIROCIN OINT 2% 22 GM TUBE NS SCH ×2 (08:27→22:05)
[2020-10-11] MEDS: HYDROCODONE/APAP 5/325MG TABLET PO PRN ×2 (08:29→18:29)
[2020-10-11] MEDS: ASPIRIN 81 MG TAB.CHEW PO SCH (08:29)
[2020-10-11 16:00] VITALS: BP 136/86
--- NOTE | 2020-10-11 18:10 | NUR ---
MS RN CLOSING NOTES PATIENT IN BED. A/O X 3. AMBULATORY. NO SOB NOTED. IN NO APPARENT DISTRESS. IV ACCESS ON R FA #20 G, INTACT AND PATENT. ABLE TO MAKE NEEDS KNOWN. ROUTINE MEDS WERE GIVEN ORDERED. SAFETY MEASURES MAINTAINED. BED IN LOWEST POSITION, BRAKES LOCKED. SIDE RAILS UP X2. CALL LIGHT WITHIN REACH. WILL ENDORSE TO STEM ROLLER OPERATOR FOR [place].
[2020-10-11 20:00] VITALS: BP 123/69
[2020-10-11] MEDS: ACETAMINOPHEN 325 MG TABLET PO PRN (22:05)
[2020-10-12] MEDS: VANCOMYCIN 1 GM in IV D5W 250 ML IV SCH ×2 (02:27→12:02)
[2020-10-12] MEDS: HYDROCODONE/APAP 5/325MG TABLET PO PRN ×2 (02:49→14:11)
[2020-10-12] MEDS: ZOSYN IVPB 3.375 G in IV D5W 50ml IV SCH ×2 (04:13→10:29)
--- NOTE | 2020-10-12 06:45 | NUR ---
RN NOTES ALERT AND ORIENTED X4, ROOM AIR, GIVEN NORCO 1 TAB X1 WITH ADEQUATE RELIEF, CONTINENT OF BOWEL AND BLADDER, LABILE, CAN BE CALM AND COOPERATIVE, ANXIOUS AND AGITATED THE NEXT, CONTINUE VANCO AND ZOSYN
[2020-10-12 07:11] LABS: BASOPHILS # (AUTO) 0.1 /CMM (0.0-0.2); EOSINOPHILS % (AUTO) 1.7 % (0.0-6.0); HEMATOCRIT 38 % (39-51); HEMOGLOBIN 12.7 g/dL (13.5-17.5); LYMPHOCYTES % (AUTO) 18.1 % (20.0-44.0); MEAN CORPUSCULAR HGB CONC 34 g/dl (31.0-36.0); MEAN CORPUSCULAR VOLUME 91 fL (80-96); MONOCYTES # (AUTO) 0.7 /CMM (0.1-1.30); MONOCYTES % (AUTO) 12.1 % (2.0-12.0); NEUTROPHILS # (AUTO) 3.7 /CMM (1.8-8.9); NEUTROPHILS % (AUTO) 67.1 % (43.0-81.0); PLATELET COUNT (AUTO) 380 /CMM (150-450); RED BLOOD CELL COUNT(AUTO) 4.15 MIL/uL (4.5-6.0); WHITE BLOOD COUNT (AUTO) 5.6 K/uL (4.3-11.0)
[2020-10-12] MEDS: ENOXAPARIN SODIUM 40 MG/0.4 ML DISP.SYRIN SQ SCH (07:15)
--- NOTE | 2020-10-12 07:30 | NUR ---
MS RN OPENING NOTES RECEIVED PT IN BED EATING HIS BF. A/O X 3. NO SOB NOTED. NO S/S OF RESPIRATORY DISTRESS. IV ACCESS ON R FA #22 G. SAFETY MEASURES MAINTAINED. BED IN LOWEST POSITION, BRAKES LOCKED. SIDE RAILS UP X2. CALL LIGHT WITHIN REACH. WILL CONTINUE PLAN OF CARE.
[2020-10-12 08:00] VITALS: BP 129/92
[2020-10-12] MEDS ORDERED: CLIN300C12 PO (08:02)
[2020-10-12] MEDS ORDERED: LACT1CAP69 PO (08:02)
[2020-10-12] MEDS ORDERED: ASPI-1169 PO (08:02)
[2020-10-12 08:24] LABS: CALCIUM, SERUM 8.7 mg/dL (8.5-10.1); CREATININE 0.9 mg/dL (0.6-1.3); POTASSIUM 4.1 mmol/L (3.5-5.1)
[2020-10-12] MEDS: MUPIROCIN OINT 2% 22 GM TUBE NS SCH (08:29)
[2020-10-12] MEDS: PANTOPRAZOLE 40 MG TABLET.DR PO SCH (08:29)
[2020-10-12] MEDS: ASPIRIN 81 MG TAB.CHEW PO SCH (08:29)
--- NOTE | 2020-10-12 14:40 | NUR ---
MS RN NOTES PATIENT IS DISCHARGED. HEALTH TEACHINGS WERE GIVEN. VERBALIZED UNDERSTANDING. LEFT THE FACILITY VIA PRIVATE CAR. PROVIDED CANE DME. ID BADGE AND IV ACCESS REMOVED.
== END 2020-10-12 14:40 | disposition home or self-care (01) | DRG 139 ==
LOC: ER 01:53 → TRANSITION 05:54 → TELE1 12:25 → TELE 10-09 16:24 → MED 10-11 08:41
PROVIDERS: ADMIT Family Medicine; ATTEND Family Medicine
DX: J15.9 Unspecified bacterial pneumonia (principal); Z59.0 Homelessness; I10 Essential (primary) hypertension; G62.9 Polyneuropathy, unspecified; E83.39 Other disorders of phosphorus metabolism; Z79.899 Other long term (current) drug therapy; Z72.0 Tobacco use; Z79.82 Long term (current) use of aspirin; L03.116 Cellulitis of left lower limb; K40.00 Bilateral inguinal hernia, with obstruction, without gangrene, not specified as recurrent; F19.90 Other psychoactive substance use, unspecified, uncomplicated
CPT/HCPCS: 36415; 71045-TC; 75574; 80048-TC; 80061-TC; 80202-TC; 81001; 83735-TC; 84100-TC; 84443-TC; 84484-TC; 85025-TC; 87040-TC; 87081-TC; 93307-TC; 97112-TC; 97530-TC; A9563; G0378; J1650; J2543; J3370; J3490; J7040; J7050; J7060; Q9967; U0003

== ENCOUNTER 2020-10-30 01:30 | Emergency (ER) | payer MEDICARE, OTHER ==
[~2020-10-30] VITALS: Ht 185.4 cm; Wt 74.8 kg
[~2020-10-30 01:30] MED LIST changes: +ASPI-1169 PO; +CLIN300C12 PO; +LACT1CAP69 PO
--- NOTE | 2020-10-30 01:35 | NUR ---
PT BIBRA C/O CHEST PAIN THAT RADIATES TO THE BACK AND BURNING FEET. PT AAOX4 BREATHING EVENLY AND UNLABORED. PT STATES " MY CHEST PAIN FEELS LIKE STABBING" PT ATTACHED TO NATURAL DEVELOPER AND POX. SKIN WARM, DRY, AND INTACT. LEFT WRIST 20 G INITIATED. BLOOD OBTAINED AND SENT TO LAB. EMT AT BEDSIDE FOR EKG. PT GIVEN BLANKET AND CALL LIGHT WITHIN REACH.
--- NOTE | 2020-10-30 02:06 | NUR ---
XRAY AT BEDSIDE
[2020-10-30 02:21] LABS: CALCIUM, SERUM 8.7 mg/dL (8.5-10.1); CREATININE 1.2 mg/dL (0.6-1.3); POTASSIUM 4.6 mmol/L (3.5-5.1)
[2020-10-30 02:50] LABS: BASOPHILS % (AUTO) 0.3 % (0.0-2.0); EOSINOPHILS % (AUTO) 0.1 % (0.0-6.0); HEMATOCRIT 42 % (39-51); HEMOGLOBIN 13.9 g/dL (13.5-17.5); LYMPHOCYTES % (AUTO) 12.4 % (20.0-44.0); MEAN CORPUSCULAR HGB CONC 33 g/dl (31.0-36.0); MEAN CORPUSCULAR VOLUME 91 fL (80-96); MONOCYTES # (AUTO) 0.7 /CMM (0.1-1.30); MONOCYTES % (AUTO) 8.5 % (2.0-12.0); NEUTROPHILS # (AUTO) 6.3 /CMM (1.8-8.9); NEUTROPHILS % (AUTO) 78.7 % (43.0-81.0); PLATELET COUNT (AUTO) 355 /CMM (150-450); RED BLOOD CELL COUNT(AUTO) 4.57 MIL/uL (4.5-6.0)
--- NOTE | 2020-10-30 05:02 | NUR ---
lab at bedside
--- NOTE | 2020-10-30 05:45 | NUR ---
Patient discharged to home in stable condition. Written and verbal after care instructions given. Patient verbalizes understanding of instruction. Pt signed homeless waiver. Pt ambulatory with a steady gait
[2020-10-30 05:57] VITALS: BP 142/86
== END 2020-10-30 07:14 | disposition home or self-care (01) ==
LOC: ER 01:33
DX: R07.89 Other chest pain (principal); I10 Essential (primary) hypertension; F17.200 Nicotine dependence, unspecified, uncomplicated; Z59.0 Homelessness; Z79.899 Other long term (current) drug therapy; Z79.82 Long term (current) use of aspirin
CPT/HCPCS: 36415; 71045-TC; 80048-TC; 84484-TC; 85025-TC

== ENCOUNTER 2020-11-09 17:30 | Emergency (ER) | payer MEDICARE, OTHER ==
[~2020-11-09] VITALS: Ht 180.3 cm; Wt 86.2 kg
--- NOTE | 2020-11-09 18:03 | NUR ---
GIRISH FROM [facility]. FOUND LYING ON THE FLOOR AND AN EMPTY BOTTLE OF ALCOHOL. PT IS AWAKE, MUMBLING INCOHERENT AND SMELLS OF ALCOHOL. BROUGHT IN FOR ALTERED MENTAL STATUS. PROVIDER WAS AT THE BEDSIDE FOR EVAL.
[2020-11-09 18:31] LABS: BILIRUBIN,URINE Negative (NEGATIVE); COLOR,URINE YELLOW (YELLOW); LEUKOCYTE ESTERASE ,URINE Negative (NEGATIVE); NITRITE, URINE Negative (NEGATIVE); PROTEIN,URINE Trace mg/dl (NEGATIVE); UGLUCOSE Negative (NEGATIVE); UROBILINOGEN,URINE 0.2 EU/dL (0.2)
[2020-11-09] MEDS ORDERED: OLANZAPINE 10 MG VIAL IM ONE ×2 (18:45→19:00)
[2020-11-09 18:48] LABS: BASOPHILS # (AUTO) 0.1 /CMM (0.0-0.2); BASOPHILS % (AUTO) 2.1 % (0.0-2.0); EOSINOPHILS % (AUTO) 0.8 % (0.0-6.0); HEMATOCRIT 45 % (39-51); HEMOGLOBIN 14.7 g/dL (13.5-17.5); LYMPHOCYTES # (AUTO) 1.9 /CMM (0.8-4.8); LYMPHOCYTES % (AUTO) 35.2 % (20.0-44.0); MEAN CORPUSCULAR HGB CONC 33 g/dl (31.0-36.0); MEAN CORPUSCULAR VOLUME 94 fL (80-96); MONOCYTES # (AUTO) 0.5 /CMM (0.1-1.30); MONOCYTES % (AUTO) 8.8 % (2.0-12.0); NEUTROPHILS # (AUTO) 2.9 /CMM (1.8-8.9); NEUTROPHILS % (AUTO) 53.1 % (43.0-81.0); PLATELET COUNT (AUTO) 374 /CMM (150-450); RED BLOOD CELL COUNT(AUTO) 4.81 MIL/uL (4.5-6.0); WHITE BLOOD COUNT (AUTO) 5.4 K/uL (4.3-11.0)
[2020-11-09 19:26] LABS: SERUM AMMONIA 76 umol/L (11-32)
[2020-11-09 19:47] LABS: THYROID STIMULATING HORMONE 0.856 uIU/mL (0.358-3.74)
[2020-11-09 19:50] LABS: BACTERIA,URINE Few /HPF (None Seen); RBC,URINE 0-2 /HPF (0-2); SQUAMOUS EPITHELIAL CELL,UR Rare /HPF (None Seen); WBC,URINE 0-2 /HPF (0-3)
[2020-11-09 19:55] LABS: CALCIUM OXALATE CRYSTALS,UR Moderate /HPF (None Seen)
[2020-11-09 20:29] LABS: CALCIUM, SERUM 8.4 mg/dL (8.5-10.1); CARBON DIOXIDE 26 mmol/L (21-32); CHLORIDE 108 mmol/L (98-107); CREATININE 0.9 mg/dL (0.6-1.3); GLUCOSE 103 mg/dL (74-106); POTASSIUM 3.6 mmol/L (3.5-5.1); SODIUM SERUM 143 mmol/L (136-145); UREA NITROGEN, BLOOD 17 mg/dL (7-18)
[2020-11-09 20:43] LABS: ALANINE AMINOTRANSFERASE 54 U/L (12-78); ALBUMIN 2.9 g/dL (3.4-5.0); ALCOHOL, BLOOD 178 mg/dL (0-0); ALKALINE PHOSPHATASE 84 U/L (46-116); ASPARTATE AMINOTRANSFERASE 43 U/L (15-37); BILIRUBIN,DIRECT 0.1 mg/dL (0.0-0.2); BILIRUBIN,TOTAL 0.2 mg/dL (0.2-1.0); TOTAL PROTEIN, SERUM 7.2 g/dL (6.4-8.2)
[2020-11-09 20:44] LABS: ACETAMINOPHEN 0 ug/ml (10-30)
[2020-11-09] MEDS ORDERED: LACTULOSE 10 G/15 ML UDC (PYXIS) GT ONE (21:30)
[2020-11-09] MEDS ORDERED: LACTULOSE 10 G/15 ML UDC (PYXIS) ONE (22:01)
--- NOTE | 2020-11-09 23:02 | NUR ---
PATIENT PULLED OUT OWN IV BY ACCIDENT. SITE OF PREVIOUS IV SITE IS NOT BLEEDING. 2x2 GAUZE PLACED ON SITE.
--- NOTE | 2020-11-09 23:46 | NUR ---
Patient discharged to home in stable condition. Written and verbal after care instructions given. Patient verbalizes understanding of instruction.IV removed. Catheter intact and site benign. Pressure and 4x4 applied to site. No bleeding noted.Pt ambulatory with a steady gait. Pt refused to sign the homeless waiver.
[2020-11-09 23:47] VITALS: BP 143/98
--- NOTE | 2020-11-09 23:47 | NUR ---
pt provided with a meal
--- NOTE | 2020-11-10 00:17 | NUR ---
Patient discharged to home in stable condition. Written and verbal after care instructions given. Patient verbalizes understanding of instruction. Pt ambulated out of ED. VSS.
== END 2020-11-10 00:17 | disposition home or self-care (01) ==
LOC: ER 17:32
DX: F10.10 Alcohol abuse, uncomplicated (principal); F15.10 Other stimulant abuse, uncomplicated; R41.82 Altered mental status, unspecified; I10 Essential (primary) hypertension; F17.200 Nicotine dependence, unspecified, uncomplicated; Y90.6 Blood alcohol level of 120-199 mg/100 ml; Z59.0 Homelessness; Z79.82 Long term (current) use of aspirin; Z79.899 Other long term (current) drug therapy
CPT/HCPCS: 36415; 70450; 71045; 71250; 72125; 80048; 80076; 80299; 80307; 80320; 81001; 82140; 82962 ×2; 84443; 84484; 85025; 93005; 96372; 99285; J3490; G0480

== ENCOUNTER 2021-03-19 05:00 | Inpatient (IN) | payer OTHER, MEDICARE ==
[~2021-03-19] VITALS: Ht 185.4 cm; Wt 77.1 kg
[2021-03-19] MEDS ORDERED: KETOROLAC TROMETHAMINE 15 MG/ML VIAL ONE ×2 (05:18→05:21)
--- NOTE | 2021-03-19 05:19 | NUR ---
GIRISH FROM [place] FOR C/O BILATERAL GROIN PAIN. PT REPORTED HX OF "HERNIA" . ALSO W/ C/O DRY SKIN ON HIS HANDS. PT VERY ANXIOUS AND UNCOOPERATIVE ON TRIAGE AND ASSESSMENT , REFUSING TO ANSWER QUESTIONS OR PROVIDING FURTHER INFO. PT WAS PLACED IN BED 12 ER ON A MONITOR , VSS. WILL CONT TO MONITOR ,
[2021-03-19] MEDS ORDERED: KETOROLAC TROMETHAMINE INJ 30 MG/ML VIAL IV ONE (05:30)
[2021-03-19 05:42] LABS: BASOPHILS # (AUTO) 0.1 K/uL (0.0-0.2); BASOPHILS % (AUTO) 1.4 % (0.0-2.0); EOSINOPHILS % (AUTO) 1.6 % (0.0-6.0); HEMATOCRIT 43 % (39-51); HEMOGLOBIN 13.8 g/dL (13.5-17.5); LYMPHOCYTES # (AUTO) 1.5 K/uL (0.8-4.8); LYMPHOCYTES % (AUTO) 32.3 % (20.0-44.0); MEAN CORPUSCULAR HGB CONC 33 g/dl (31.0-36.0); MEAN CORPUSCULAR VOLUME 91 fL (80-96); MONOCYTES # (AUTO) 0.6 K/uL (0.1-1.30); MONOCYTES % (AUTO) 13.2 % (2.0-12.0); NEUTROPHILS # (AUTO) 2.5 K/uL (1.8-8.9); NEUTROPHILS % (AUTO) 51.5 % (43.0-81.0); PLATELET COUNT (AUTO) 356 K/uL (150-450); RED BLOOD CELL COUNT(AUTO) 4.64 MIL/uL (4.5-6.0); WHITE BLOOD COUNT (AUTO) 4.8 K/uL (4.3-11.0)
[2021-03-19 05:53] LABS: CALCIUM, SERUM 8.4 mg/dL (8.5-10.1); CREATININE 1.2 mg/dL (0.6-1.3)
[2021-03-19 05:55] LABS: BILIRUBIN,URINE Negative (NEGATIVE); COLOR,URINE YELLOW (YELLOW); LEUKOCYTE ESTERASE ,URINE Negative (NEGATIVE); NITRITE, URINE Negative (NEGATIVE); PROTEIN,URINE 100 mg/dl (NEGATIVE); UGLUCOSE Negative (NEGATIVE)
--- NOTE | 2021-03-19 05:58 | NUR ---
BROUGHT TO CT AND BACK
[2021-03-19 05:59] LABS: ALBUMIN 2.9 g/dL (3.4-5.0); BILIRUBIN,DIRECT 0.3 mg/dL (0.0-0.2); BILIRUBIN,TOTAL 0.8 mg/dL (0.2-1.0); TOTAL PROTEIN, SERUM 7.1 g/dL (6.4-8.2)
[2021-03-19] MEDS ORDERED: OLANZAPINE 10 MG VIAL IM ONE ×3 (06:46→07:00)
[2021-03-19] MEDS ORDERED: ONDANSETRON HCL/PF 4 MG/2 ML VIAL ONE (06:46)
[2021-03-19] MEDS ORDERED: MORPHINE SULFATE INJ 4 MG/ML DISP.SYRIN ONE (06:46)
--- NOTE | 2021-03-19 06:46 | NUR ---
[place] amos in [facility] - 03/19/21 at 0652 by ZAHIDA taken to radiology
[2021-03-19] MEDS ORDERED: LORAZEPAM INJ 2 MG/ML VIAL ONE (06:55)
[2021-03-19] MEDS ORDERED: ONDANSETRON HCL/PF 4 MG/2 ML VIAL IVP ONE (07:00)
[2021-03-19] MEDS ORDERED: LORAZEPAM INJ 2 MG/ML VIAL IM ONE (07:00)
[2021-03-19] MEDS ORDERED: MORPHINE SULFATE INJ 2 MG/ML DISP.SYRIN IV ONE (07:00)
--- NOTE | 2021-03-19 07:02 | NUR ---
UNABLE TO PROVIDE URINE AT THIS TIME.
[2021-03-19 07:09] LABS: BACTERIA,URINE Rare /HPF (None Seen); SQUAMOUS EPITHELIAL CELL,UR Rare /HPF (None Seen); WBC,URINE 0-2 /HPF (0-3)
--- NOTE | 2021-03-19 07:51 | NUR ---
CALLED NURSING SUP FOR TELE BED.
--- NOTE | 2021-03-19 07:53 | NUR ---
room 119-1
[2021-03-19] MEDS ORDERED: ACETAMINOPHEN 325 MG TABLET PO PRN (08:00)
[2021-03-19] MEDS ORDERED: ONDANSETRON HCL/PF 4 MG/2 ML VIAL IVP PRN (08:00)
[2021-03-19] MEDS ORDERED: MAGNESIUM HYDROXIDE 30 ML UDC PO PRN (08:00)
[2021-03-19] MEDS ORDERED: ZOLPIDEM TARTRATE 5 MG TABLET PO PRN (08:00)
[2021-03-19] MEDS ORDERED: LORAZEPAM INJ 2 MG/ML VIAL IV PRN (08:00)
[2021-03-19] MEDS ORDERED: Z GUARD REMEDY 2 OZ OINT TP PRN (08:00)
--- NOTE | 2021-03-19 08:19 | NUR ---
report given to nurse Dipti
--- NOTE | 2021-03-19 08:50 | NUR ---
pt taken to 119-1 in stable condition per acls policy.
--- NOTE | 2021-03-19 08:59 | NUR ---
MOBILITY ARCHITECT NOTES ADMITTED PATIENT IN ROOM 119-1. REPORT RECEIVED FROM ED NURSE WILIAN AGUIRRE. PATIENT IS ALERT AND ORIENTED X2-3, VERY GROGGY AND SLEEPY. NO SIGNS OR SYMPTOMS OF DISTRESS NOTED. NO COMPLAINTS OF PAIN AT THIS TIME. VITAL SIGNS STABLE. IV ACCESS LHAND#20 PATENT, INTACT AND FLUSHING WELL. CALL LIGHT AND BEDSIDE TABLE WITHIN REACH. SAFETY MEASURES IN PLACE. WILL CONTINUE TO MONITOR PATIENT THROUGHOUT SHIFT.
[2021-03-19] MEDS ORDERED: FUROSEMIDE 40 MG/4 ML VIAL IV SCH (09:00)
[2021-03-19] MEDS: FUROSEMIDE 40 MG/4 ML VIAL IV SCH ×3 (09:49→17:47)
--- NOTE | 2021-03-19 19:05 | NUR ---
RN CLOSING NOTES PATIENT IS ASLEEP IN BED. ALERT AND ORIENTED X 3-4 VERY GROGGY AND SLEEPY. NO SIGNS OR SYMPTOMS OF DISTRESS NOTED. IV ACCESS LHAND#20 PATENT, INTACT AND FLUSHING WELL. CALL LIGHT AND BEDSIDE TABLE WITHIN REACH. SAFETY MEASURES IN PLACE. WILL ENDORSE CONTINUITY OF CARE TO NEXT NURSE.
--- NOTE | 2021-03-19 19:30 | NUR ---
RN NOTES Received pt in bed very sleepy and groggy, Responsive to verbal and tactile stimuli. Breathing normal SR on tele monitor. NO s/s of SOB noted. Denies any pain or discomfort. IV site LH 20G SL flushes well. Skin warm and dry to touch. Safety measures in place, call light within reach. Side rails up, Will cont to monitor for gill.
[2021-03-19 20:00] VITALS: BP 122/87
[2021-03-19] MEDS ORDERED: KEY,NONCONTROL,TO KEEP IN PYXI 1 EA MC ONE (21:20)
--- NOTE | 2021-03-19 23:00 | NUR ---
PATIENT RESTING COMFORTABLY IN BED NO DISTRESS NOTED. KEPT CLEAN DRY AND COMFORTABLE.
[2021-03-20] VITALS: BP 122/87
[2021-03-20 04:00] VITALS: BP 127/96
[2021-03-20] MEDS: HYDROMORPHONE INJ 2 MG/ML DISP.SYRIN IV PRN ×3 (04:53→23:59)
--- NOTE | 2021-03-20 06:25 | NUR ---
RN NOTES NO CHANGES NOTED DURING SHIFT. NO S/S OF ACUTE DISTRESS NOTED. PRN PAIN MEDICATION GIVEN NOTED TO BE EFFECTIVE. BREATHING NORMAL NO SOB NOTED. IV'S INTACT FLUSHES WELL. AM CARE GIVEN KEPT CLEAN DRY AND COMFORTABLE. ALL SAFETY MEASURES IN PLACE, CALL LIGHT WITHIN REACH. WILL ENDORSE TO AM NURSE FOR [place].
[2021-03-20 06:26] LABS: BASOPHILS # (AUTO) 0.1 K/uL (0.0-0.2); BASOPHILS % (AUTO) 0.9 % (0.0-2.0); EOSINOPHILS % (AUTO) 0.9 % (0.0-6.0); HEMATOCRIT 47 % (39-51); HEMOGLOBIN 15.5 g/dL (13.5-17.5); LYMPHOCYTES # (AUTO) 1.3 K/uL (0.8-4.8); LYMPHOCYTES % (AUTO) 21.4 % (20.0-44.0); MEAN CORPUSCULAR HGB CONC 33 g/dl (31.0-36.0); MEAN CORPUSCULAR VOLUME 92 fL (80-96); MONOCYTES # (AUTO) 0.6 K/uL (0.1-1.30); MONOCYTES % (AUTO) 9.7 % (2.0-12.0); NEUTROPHILS # (AUTO) 4.2 K/uL (1.8-8.9); NEUTROPHILS % (AUTO) 67.1 % (43.0-81.0); PLATELET COUNT (AUTO) 408 K/uL (150-450); RED BLOOD CELL COUNT(AUTO) 5.12 MIL/uL (4.5-6.0); WHITE BLOOD COUNT (AUTO) 6.3 K/uL (4.3-11.0)
[2021-03-20 06:38] LABS: BILIRUBIN,TOTAL 0.9 mg/dL (0.2-1.0); CALCIUM, SERUM 8.1 mg/dL (8.5-10.1); CREATININE 1.4 mg/dL (0.6-1.3); MAGNESIUM 2.2 mg/dL (1.8-2.4); PHOSPHORUS 4.4 mg/dL (2.5-4.9); POTASSIUM 3.8 mmol/L (3.5-5.1); TOTAL PROTEIN, SERUM 7.6 g/dL (6.4-8.2)
--- NOTE | 2021-03-20 07:18 | NUR ---
RN OPENING NOTES RECEIVED PATIENT RESTING IN BED A/O X3. PATIENT IS BREATHING EVENLY AND NONLABORED ON ROOM AIR. NO SIGNS OF DISTRESS NOTED. PATIENT DOES NOT COMPLAIN OF PAIN AT THIS TIME. PATIENT HAS IV ACCESS ON LEFT HAND # 20 GAUGE, PATENT AND INTACT. PATIENT IS NPO AT THIS TIME. SAFETY MEASURES ARE IN PLACE, BED LOW LOCKED CALL LIGHT WITHIN REACH. WILL CONTINUE TO MONITOR
[2021-03-20] MEDS ORDERED: DIATR MEGLU/DIATRIZOATE SODIUM 120 ML BOTTLE (GASTROGRAPHIN) ONE (08:40)
[2021-03-20 09:08] VITALS: BP 140/98
[2021-03-20 13:07] VITALS: BP 140/98
--- NOTE | 2021-03-20 13:51 | NUR ---
RN NOTE PATIENT HAS COMPLETED XRAY SERIES. AT BEDSIDE STATED OKAY TO RETURN TO CARDIAC DIET. WILL CONTINUE TO MONITOR
--- NOTE | 2021-03-20 16:05 | NUR ---
"Armature Tester consult: legal services professional consult requested for homelessness and substance use. Patient is a 65-year-old, male. SW met with patient at his bedside in the telemetry unit. Patient presented alert and oriented x4. Patient was calm and resting. Patient stated that he is currently homeless. Patient reported that he is currently living in a tent but has been staying at various shelters. Patient reported that he is receiving SSI and disability as a source of income. SW asked patient about his history of substance use. Patient reported occasional methamphetamine and cannabis use. SW assessed patient's history of mental illness. Patient reported history of Anxiety, Depression and PTSD. Patient stated that he is currently taking psychiatric medication which he obtains from a clinic in [facility]. Patient stated that he is unable to recall the name of the prescription. Patient denied suicidal or homicidal ideation. SW offered the patient homeless, substance use, and outpatient mental health resources. Patient accepted the resources and thanked SW. Patient signed the homeless waiver and SW filed waiver in the patient's chart. SW discussed discharge plans with the patient and patient stated that he plans to return to his prior living arrangement on the street. PLAN: Patient plans to discharge to his prior living arrangement on the street. No further SS intervention at this time, however, SW will remain available as needed. RESOURCES: Year-round shelters: [facility] [address] [place] [address] ; [facility] [address] [place] [address]; [id number]. [facility] [address] SPA 4 | [facility] [place] Provider: First to Serve Address: [address], [address] # of Beds: 48 Population Served: [facility] Provider: First to Serve Address: [address] [facility], [address] # of Beds: 73 Population Served: [facility] 6 | [facility] Provider: [facility] at Last Address: [address] [facility], [address] # of Beds: 63 Population Served: [facility] 3 | [facility] Provider: Volunte[facility] rosa [place] Address: [address] [facility] [place], [address] # of Beds: 75 Population Served: [facility] 8 | [facility] Provider: Brown [place] Address: [address] [facility], [address] # of Beds: 80 Population Served: [facility] SPA 1 | [facility] Provider: Volunte[facility] rosa [place] Address: [address] [place] [address], [address] # of Beds: 85 Population Served: [facility] 2 | [facility] Provider: Marisa lee [facility] Address: Confidential (please call for location) # of Beds: 52 Population Served: [facility] 4 | [facility] Provider: [facility] [place] [facility] Address: [address] [place] [address], [facility] # of Beds: 49 Population Served: [facility] Provider: First To Serve Address: [address] [place] [address], [facility] # of Beds: 27 Population Served: [facility] Hygiene: [facility]: [address] [facility] ; [facility] [address] [facility] ; [facility] [address] [facility] . Food Resources: [place] [facility] at [facility]- [address] [facility]. [place]; Meet Each Need with Dignity ([facility]) [address] [facility]; [facility] Food Pantry [address] [facility]; [facility] [address] [facility]. Mental Health resources provided: [facility] [address] , [place] [address] ; [facility] [address] [facility] [address], [place], [place] [phone] ; [facility] [address] [facility] [address] [place], [place] [phone] ; [facility] [address] [place], [place] [address] Healthcare Clinics: [facility] [address] [facility], [address] [place] [place] ; [facility] [address] [facility] [address] [facility] [address]; [facility] [address] [facility] [phone] Counseling--Outpatient [facility] [address] [facility], [address] [place], [place] [address] (Specializes in in-depth psychotherapy for emotional distress: anxiety, depression, interpersonal conflicts, life transitions, childhood abuse) PSYCHIATRIC OUTPATIENT SERVICES [facility] Partial Hospitalization and Intensive Outpatient Program (Managed Care and [place] Only) [address] [facility] [address] [facility] Partial Hospitalization and Outpatient Program [address] [facility] [facility]. [address] [place], [place] [id number] [facility] Partial Hospitalization and Outpatient Program [address] [facility]. [place], [place] [id number] [facility]ly [facility] [place] [facility] [address] [facility]. [address] [place], [place] [address] [facility] Partial Hospitalization and Outpatient Program [address] [place], [place] [phone] Substance use resources provided included: [facility] Substance Abuse Self-Helpline (SAS) ; [facility] [address] [facility] [id number] ; [facility] [address] [facility] 952826 ; [facility] [address] [facility] [address] ; [facility] [address] [facility] [address] ; [facility] [address] [facility] [phone] ; [facility]; [facility] [place]; [facility]; Alcoholics Anonymous -[facility]"
[2021-03-20 17:14] VITALS: BP 146/97
--- NOTE | 2021-03-20 18:21 | NUR ---
RN CLOSING NOTES PATIENT RESTING IN BED A/O X3. PATIENT IS BREATHING EVENLY AND NONLABORED ON ROOM AIR. NO SIGNS OF DISTRESS NOTED. PATIENT DOES NOT COMPLAIN OF PAIN AT THIS TIME. PATIENT HAS IV ACCESS ON LEFT HAND # 20 GAUGE, PATENT AND INTACT. ALL MEDICATIONS GIVEN ORDERED. PATIENT REMINDED TO USE CALL LIGHT BEFORE EXITING BED TO ENSURE SAFETY DURING AMBULATION, SAFETY MEASURES ARE IN PLACE, BED LOW LOCKED CALL LIGHT WITHIN REACH. WILL ENDORSE TO ONCOMING SHIFT.
[2021-03-20 20:00] VITALS: BP 113/89
[2021-03-20] MEDS: MAG HYDROX/AL HYDROX/SIMETH 30 ML UDC PO PRN (23:58)
[2021-03-21 04:00] VITALS: BP 130/95
--- NOTE | 2021-03-21 06:15 | NUR ---
MS RN: NO SIGNIFICANT [place] DURING THE SHIFT. REMAINED A/O X4, ON ROOM AIR WT NO ACUTE DISTRESS. DILAUDID GIVEN ORDERED FOR BILAT. GROIN AND FEET PAIN WT GOOD EFFECT. AMBULATORY WT SUPERVISION. BED IN LOWEST POSITION AND LOCKED, BED ALARM ACTIVATED PT REMAINED IMPULSIVE AND DID NOT USE THE CALL LIGHT OR ASKED FOR ASSISTANCE TO USE THE RESTROOM DESPITE FREQUENT REMINDERS. CALL LIGHT KEPT WITHIN REACH.
--- NOTE | 2021-03-21 07:40 | NUR ---
RN OPENING NOTE RECEIVED REPORT FROM PM NURSE.PATIENT IN BED.AXOX4.NO SOB NO DISTRESS NOTED,ON ROOM AIR.PATIENT IS ABLE TO WALK WITH WALKER.BED ALARM ON .IV I SINTACT AND PATENT.SAFETY AND ASPIRATION MEASURES IN PLACE.BED IS LOW AND LOCKED POSITION.CALL LIGHT IN REACH.SRX2.WILL CONTINUE TO MONITOR.
[2021-03-21 08:00] VITALS: BP 136/98
[2021-03-21] MEDS: MAG HYDROX/AL HYDROX/SIMETH 30 ML UDC PO PRN ×2 (10:01→16:06)
[2021-03-21 12:00] VITALS: BP 119/93
--- NOTE | 2021-03-21 13:00 | NUR ---
RN NOTE PATIENT REFUSED TO PLACE BED ALARM.WALKING TO BATHROOM USING WALKER.STAND BY ASSIST.INSTRUCTED TO CALL FOR HELP.NON COMPLIANCE.EDUCATION GIVEN.WILL CONTINUE TO MONITOR.
[2021-03-21] MEDS: HYDROMORPHONE INJ 2 MG/ML DISP.SYRIN IV PRN ×2 (14:36→21:32)
[2021-03-21 16:00] VITALS: BP 121/93
--- NOTE | 2021-03-21 18:54 | NUR ---
RN CLOSING NOTE PATIENT IN BED.AXOX4.BRP WITH STAND BY ASSIST.LABS WILL BE IN AM.ALL NEEDS MET.WILL ENDORSE TO PM NURSE FOR [place].
--- NOTE | 2021-03-21 19:30 | NUR ---
RN NOTE RECEIVED PATIENT ON ISOLATION FOR COVID 19. PATIENT IN BED. A/OX4, TOLERATING ROOM AIR. RESPIRATIONS ARE EVEN AND UNLABORED. NO S/S SOB NOTED. NO C/O PAIN AT THIS TIME. IN NO APPARENT DISTRESS. IV ACCESS IN LEFT HAND #20 PATENT AND SALINE LOCKED. BED IS LOW AND LOCKED, HOB ELEVATED IN SEMI FOWLERS, SIDE RAILS UP X2,CALL LIGHT WITHIN REACH. INFORMED PATIENT THERE IS ORDER FOR URINE COLLECTION. WILL CONTINUE TO MONITOR THROUGHOUT SHIFT.
[2021-03-21 20:00] VITALS: BP 126/98
--- NOTE | 2021-03-22 01:05 | NUR ---
RN NOTE - TRANSFER OF CARE REPORT GIVEN TO HOMERO CEDENO FOR CONTINUATION OF CARE. PATIENT IN STABLE CONDITION. NO DISTRESS.
[2021-03-22] MEDS: HYDROMORPHONE INJ 2 MG/ML DISP.SYRIN IV PRN ×2 (03:30→07:44)
[2021-03-22 04:00] VITALS: BP 123/91
--- NOTE | 2021-03-22 06:27 | NUR ---
RN notes Alert and oriented, verbally able to communicate needs. Complaint of pain, dilaudid administered with relief. Inserted PIV line to right hand, procedure well tolerated. Good back flow noted. No significant change of condition. Vital signs WNL. Kept clean and dry.
--- NOTE | 2021-03-22 07:30 | NUR ---
RN OPENING NOTES Patient was received in sitting on bedside chair. Patient is alert and oriented x 2/3. Patient teaching done regarding safety and fall precautions. Patient will be monitored. Call light with in reach.
--- NOTE | 2021-03-22 07:30 | NUR ---
RN OPENING NOTES Patient is alert and oriented. Patient is breathing even and unlabored.Patient is received sitting in wheelchair. Patient educated regarding use of call light and fall risk. Will continue to monitor. call light with in reach.
[2021-03-22 08:00] VITALS: BP 114/62
[2021-03-22 08:14] LABS: BASOPHILS % (AUTO) 0.7 % (0.0-2.0); EOSINOPHILS % (AUTO) 1.6 % (0.0-6.0); HEMATOCRIT 46 % (39-51); LYMPHOCYTES # (AUTO) 1.6 K/uL (0.8-4.8); LYMPHOCYTES % (AUTO) 33.7 % (20.0-44.0); MEAN CORPUSCULAR HGB CONC 33 g/dl (31.0-36.0); MEAN CORPUSCULAR VOLUME 92 fL (80-96); MONOCYTES # (AUTO) 0.7 K/uL (0.1-1.30); MONOCYTES % (AUTO) 14.1 % (2.0-12.0); NEUTROPHILS # (AUTO) 2.4 K/uL (1.8-8.9); NEUTROPHILS % (AUTO) 49.9 % (43.0-81.0); PLATELET COUNT (AUTO) 405 K/uL (150-450); WHITE BLOOD COUNT (AUTO) 4.8 K/uL (4.3-11.0)
[2021-03-22 08:40] LABS: CALCIUM, SERUM 8.7 mg/dL (8.5-10.1); CREATININE 1.2 mg/dL (0.6-1.3); POTASSIUM 3.9 mmol/L (3.5-5.1)
[2021-03-22] MEDS ORDERED: FUROSEMIDE 40 MG TABLET PO SCH (09:00)
[2021-03-22] MEDS ORDERED: POTASSIUM CHLORIDE 20 MEQ TAB.PRT.SR PO SCH (09:00)
[2021-03-22] MEDS ORDERED: LISINOPRIL (10MG) 10 MG TABLET PO SCH (09:00)
[2021-03-22 09:08] VITALS: BP 114/62
--- NOTE | 2021-03-22 11:00 | NUR ---
Patient noted with pulled out IV and refused to have staff re attempt. MD aware. Patient understood the risks and benefits.
--- NOTE | 2021-03-22 12:20 | NUR ---
verified with [facility] pcr negative.
--- NOTE | 2021-03-22 17:06 | NUR ---
patient MD MIMI NOTIFIED, NURSING SUP NOTIFIED ,REPORTED TO [employer] AND SPOKE WITH OFFICER SOMMER [id number].
== END 2021-03-22 17:08 | disposition left against medical advice (07) | DRG 254 ==
LOC: EDBD 05:03 → ER 05:03 → TELE1 08:33 → MEDSG1 03-20 19:41
PROVIDERS: ADMIT Internal Medicine; ATTEND Internal Medicine
DX: K40.90 Unilateral inguinal hernia, without obstruction or gangrene, not specified as recurrent (principal); N17.0 Acute kidney failure with tubular necrosis; E43 Unspecified severe protein-calorie malnutrition; I50.41 Acute combined systolic (congestive) and diastolic (congestive) heart failure; F20.0 Paranoid schizophrenia; Z20.822 Contact with and (suspected) exposure to COVID-19; E83.51 Hypocalcemia; F29 Unspecified psychosis not due to a substance or known physiological condition; E88.09 Other disorders of plasma-protein metabolism, not elsewhere classified; I13.0 Hypertensive heart and chronic kidney disease with heart failure and stage 1 through stage 4 chronic kidney disease, or unspecified chronic kidney disease; N18.9 Chronic kidney disease, unspecified; Z68.22 Body mass index [BMI] 22.0-22.9, adult; F17.210 Nicotine dependence, cigarettes, uncomplicated; Z59.0 Homelessness; Z79.82 Long term (current) use of aspirin
CPT/HCPCS: 36415; 71045-TC; 74250-TC; 80048-TC; 80053-TC; 80076-TC; 81001; 83690-TC; 83735-TC; 83880; 84100-TC; 84484-TC; 85025-TC; 85730-TC; 87081-TC; 93307-TC; A4349; C9803; G0378; G0480; J1170; J1885; J1940; J2060; J2270; J2405; J3490; Q9963; U0003

== ENCOUNTER 2021-05-13 00:42 | Emergency (ER) | payer MEDICARE, OTHER ==
[~2021-05-13] VITALS: Ht 185.4 cm; Wt 81.6 kg
--- NOTE | 2021-05-13 01:18 | NUR ---
PATIENT IN BED 12, A/OX3, C/O BILATERLA KNEE PAIN, SCIATIC NERVE PAIN, HERNIA.
[2021-05-13 01:49] LABS: BILIRUBIN,URINE SMALL (NEGATIVE); COLOR,URINE YELLOW (YELLOW); LEUKOCYTE ESTERASE ,URINE Negative (NEGATIVE); NITRITE, URINE Negative (NEGATIVE); PH,URINE 5.5 (5.0-8.0); PROTEIN,URINE >=300 mg/dl (NEGATIVE); UGLUCOSE Negative (NEGATIVE)
[2021-05-13 01:52] LABS: BASOPHILS # (AUTO) 0.1 K/uL (0.0-0.2); BASOPHILS % (AUTO) 1.4 % (0.0-2.0); EOSINOPHILS % (AUTO) 3.7 % (0.0-6.0); HEMATOCRIT 42 % (39-51); HEMOGLOBIN 13.3 g/dL (13.5-17.5); LYMPHOCYTES # (AUTO) 1.4 K/uL (0.8-4.8); LYMPHOCYTES % (AUTO) 33.3 % (20.0-44.0); MEAN CORPUSCULAR HGB CONC 32 g/dl (31.0-36.0); MEAN CORPUSCULAR VOLUME 92 fL (80-96); MONOCYTES # (AUTO) 0.4 K/uL (0.1-1.30); MONOCYTES % (AUTO) 9.8 % (2.0-12.0); NEUTROPHILS # (AUTO) 2.2 K/uL (1.8-8.9); NEUTROPHILS % (AUTO) 51.8 % (43.0-81.0); PLATELET COUNT (AUTO) 364 K/uL (150-450); RED BLOOD CELL COUNT(AUTO) 4.52 MIL/uL (4.5-6.0); WHITE BLOOD COUNT (AUTO) 4.2 K/uL (4.3-11.0)
[2021-05-13 02:00] LABS: BACTERIA,URINE None seen /HPF (None Seen); MUCUS,URINE Rare /LPF (None Seen); SQUAMOUS EPITHELIAL CELL,UR Few /HPF (None Seen); WBC,URINE 0-2 /HPF (0-3)
[2021-05-13 02:00] LABS: CREATININE 1.3 mg/dL (0.6-1.3); POTASSIUM 4.7 mmol/L (3.5-5.1)
[2021-05-13] MEDS ORDERED: ONDANSETRON HCL/PF 4 MG/2 ML VIAL ONE (02:11)
[2021-05-13] MEDS ORDERED: MORPHINE SULFATE INJ 4 MG/ML DISP.SYRIN ONE (02:12)
[2021-05-13] MEDS: ONDANSETRON HCL/PF 4 MG/2 ML VIAL IVP ONE (02:12)
[2021-05-13 02:16] LABS: ALBUMIN 2.7 g/dL (3.4-5.0); BILIRUBIN,DIRECT 0.2 mg/dL (0.0-0.2); BILIRUBIN,TOTAL 0.4 mg/dL (0.2-1.0)
[2021-05-13] MEDS: MORPHINE SULFATE INJ 2 MG/ML DISP.SYRIN IV ONE (02:19)
--- NOTE | 2021-05-13 04:00 | NUR ---
INFORMED PATIENT HE CAN NOT EAT OR DRINK D/T SURGEON WILL SEE HIM IN AM.
--- NOTE | 2021-05-13 05:56 | NUR ---
PT WAS SEEN AND EXAMINED BY DR EMERSON, GENERAL SURGEON. PER DR EMERSON, PT HAS THIS LARGE SCROTAL HERNIA FOR A LONG TIME AND NO INDICATION FOR ADMISSION NOTED AT THIS TIME.
--- NOTE | 2021-05-13 06:35 | NUR ---
Patient discharged to home in stable condition. Written and verbal after care instructions given. Patient verbalizes understanding of instruction. Pt ambulated out of ED. VSS.
--- NOTE | 2021-05-13 06:35 | NUR ---
IV removed. Catheter intact and site benign. Pressure and 4x4 applied to site. No bleeding noted.
[2021-05-13 06:36] VITALS: BP 126/76
== END 2021-05-13 06:36 | disposition home or self-care (01) ==
LOC: ER 00:42
DX: K40.30 Unilateral inguinal hernia, with obstruction, without gangrene, not specified as recurrent (principal); N50.89 Other specified disorders of the male genital organs; Z20.822 Contact with and (suspected) exposure to COVID-19; Z59.0 Homelessness; R73.03 Prediabetes; I10 Essential (primary) hypertension; Z79.82 Long term (current) use of aspirin
CPT/HCPCS: 36415; 72192; 76870; 80048; 80076; 81001; 83690; 85025; 87426; 96374; 96375; 99285; J2270; J2405; C9803